=== PATIENT | male | born 1965 | race Caucasian/White ===

== ENCOUNTER 2021-06-06 18:08 | Emergency (ER) | payer MEDICARE, MEDICAID ==
[2021-06-06] MEDS ORDERED: Sodium Chloride 0.9% 10 ML Syringe FLUSH PRN (18:26)
[2021-06-06 19:30] LABS: CHLORIDE,CL 101 mmol/L (98-107); SODIUM,NA 137 mmol/L (136-145)
== END 2021-06-06 20:30 | disposition home or self-care (01) ==
LOC: LL.ED 18:08
DX: K62.5 Hemorrhage of anus and rectum (principal); Z72.0 Tobacco use; Z79.82 Long term (current) use of aspirin
CPT/HCPCS: 36415; 80053; 82150; 82272; 83690; 83735; 84100; 85025; 85610; 85730; 86140; 99283